=== PATIENT | male | born 1950 | race Caucasian/White ===

== ENCOUNTER 2017-12-06 04:49 | Outpatient (CLI) | payer MEDICARE | END 2017-12-06 23:59 | disposition home or self-care (01) | LOC: DIABETIC 04:49 | PROVIDERS: ATTEND Specialist | DX: E11.65 Type 2 diabetes mellitus with hyperglycemia (principal) | CPT/HCPCS: G0108 ==

== ENCOUNTER 2018-03-01 04:56 | Outpatient (CLI) | payer MEDICARE | END 2018-03-01 23:59 | disposition home or self-care (01) | LOC: DIABETIC 04:56 | PROVIDERS: ATTEND Specialist | DX: E11.65 Type 2 diabetes mellitus with hyperglycemia (principal) | CPT/HCPCS: G0108 ==